=== PATIENT | male | born 1975 | race African-American/Black ===

== ENCOUNTER 2017-11-23 10:37 | Emergency (ER) | payer OTHER ==
[~2017-11-23] VITALS: Ht 182.9 cm; Wt 90.7 kg
[~2017-11-23 10:37] MED LIST: BACTERICIN30 GM TP
[2017-11-23 12:15] VITALS: BP 102/69
== END 2017-11-23 12:16 | disposition home or self-care (01) ==
LOC: EME 10:37
PROC: 0HQEXZZ Repair Left Lower Arm Skin, External Approach (ICD-10-PCS; principal; 2017-11-23)
DX: S51.812A Laceration without foreign body of left forearm, initial encounter (principal); S80.01XA Contusion of right knee, initial encounter; V18.0XXA Pedal cycle driver injured in noncollision transport accident in nontraffic accident, initial encounter; Y93.55 Activity, bike riding; Z88.0 Allergy status to penicillin
CPT/HCPCS: 73090; 73564; 99281; 99284